=== PATIENT | male | born 1990 | race Caucasian/White ===

== ENCOUNTER 2022-05-02 12:13 | Emergency (ER) | payer MEDICAID ==
[2022-05-02] MEDS ORDERED: Lidocaine 1% 10 ML MDV INJECT ONE (13:10)
== END 2022-05-02 14:25 | disposition home or self-care (01) ==
LOC: JD.ED 12:13
DX: S01.01XA Laceration without foreign body of scalp, initial encounter (principal); W01.198A Fall on same level from slipping, tripping and stumbling with subsequent striking against other object, initial encounter
CPT/HCPCS: 12002; 99282

== ENCOUNTER 2022-05-11 16:54 | Emergency (ER) | payer SELFPAY | END 2022-05-11 17:51 | disposition home or self-care (01) | LOC: JD.ED 16:54 | DX: S01.01XD Laceration without foreign body of scalp, subsequent encounter (principal) | CPT/HCPCS: 99281 ==